=== PATIENT | female | born 1935 | race Caucasian/White ===

== ENCOUNTER 2018-12-21 21:19 | Outpatient (REF) | payer MEDICARE, MEDICAID, SELFPAY ==
[2018-12-21 21:36] LABS: TSH (W/Ref FT4) 2.26 uIU/mL (0.36-3.74)
[2018-12-21 22:17] LABS: Hemoglobin A1C 6.3 % (4.5-6.2)
== END 2018-12-21 21:39 ==
LOC: NCHCN 21:19
PROVIDERS: PCP Family Medicine; Visit Provider Family Medicine
DX: I10 Essential (primary) hypertension (principal); E03.9 Hypothyroidism, unspecified; E11.9 Type 2 diabetes mellitus without complications
CPT/HCPCS: 83036; 84443

== ENCOUNTER 2019-06-21 12:22 | Outpatient (REF) | payer MEDICARE, MEDICAID, SELFPAY ==
[2019-06-21 21:16] LABS: COMMENT (LAB VIEW ONLY) 51.15 mg/dL; Microalb ug/mg Crea 5.9 ug/mg Cr
== END 2019-06-21 12:42 ==
LOC: NCHCN 12:22
PROVIDERS: PCP Family Medicine; Visit Provider Family Medicine
DX: E11.9 Type 2 diabetes mellitus without complications (principal)
CPT/HCPCS: 82043; 82570

== ENCOUNTER 2020-01-08 09:19 | Outpatient (REF) | payer MEDICARE, MEDICAID, SELFPAY ==
[2020-01-08 19:50] LABS: Calculated LDL 144 mg/dL (<100); Cholesterol 227 mg/dL (<200); HDL Cholesterol 45 mg/dL (40-60); TSH 2.26 uIU/mL (0.36-3.74); Triglyceride 191 mg/dL (<150)
== END 2020-01-08 09:39 ==
LOC: NCHCN 09:19
PROVIDERS: PCP Family Medicine; Visit Provider Family Medicine
DX: E03.9 Hypothyroidism, unspecified (principal); E78.5 Hyperlipidemia, unspecified
CPT/HCPCS: 80061; 84443

== ENCOUNTER 2020-04-22 11:42 | Outpatient (REF) | payer MEDICARE, MEDICAID, SELFPAY ==
[2020-04-22 22:32] LABS: ALT 39 U/L (14-59); AST 25 U/L (15-37); Alkaline Phosphatase 75 U/L (46-116); Bilirubin, Total 1.8 mg/dL (0.2-1.0); Calculated LDL 73 mg/dL (<100); Cholesterol 151 mg/dL (<200); HDL Cholesterol 57 mg/dL (40-60); Triglyceride 107 mg/dL (<150)
[2020-04-22 23:20] LABS: Bilirubin, Direct 0.33 mg/dL (0.00-0.20)
== END 2020-04-22 12:02 ==
LOC: NCHCN 11:42
PROVIDERS: Nurse Practitioner Family; PCP Family Medicine; Visit Provider Family Medicine
DX: E78.5 Hyperlipidemia, unspecified (principal); E11.9 Type 2 diabetes mellitus without complications
CPT/HCPCS: 80061; 80076

== ENCOUNTER 2020-08-26 08:44 | Outpatient (REF) | payer MEDICARE, MEDICAID, SELFPAY ==
[2020-08-26 14:18] LABS: Anion Gap 10.2 mmol/L (3-11); BUN 15 mg/dL (7-18); CO2 27.8 mmol/L (21.0-32.0); CREATININE 0.9 mg/dL (0.55-1.02); Calcium 8.8 mg/dL (8.5-10.1); Calculated LDL 68 mg/dL (<100); Chloride 98 mmol/L (98-107); Cholesterol 144 mg/dL (<200); Glucose 135 mg/dL (74-106); HDL Cholesterol 57 mg/dL (40-60); Potassium 4.2 mmol/L (3.5-5.1); Sodium 136 mmol/L (136-145); Triglyceride 98 mg/dL (<150)
[2020-08-26 15:48] LABS: COMMENT (LAB VIEW ONLY) 41.25 mg/dL; Microalb ug/mg Crea 17.7 ug/mg Cr
== END 2020-08-26 08:45 | disposition home or self-care (01) ==
LOC: NCHCN 08:44
PROVIDERS: PCP Family Medicine; Visit Provider Registered Nurse
DX: I10 Essential (primary) hypertension (principal); E11.9 Type 2 diabetes mellitus without complications
CPT/HCPCS: 80048; 80061; 82043; 82570; 83036

== ENCOUNTER 2020-11-25 15:02 | Outpatient (REF) | payer MEDICARE, MEDICAID, SELFPAY ==
[2020-11-25 15:11] LABS: Anion Gap 9.7 mmol/L (3-11); BUN 12 mg/dL (7-18); CO2 30.3 mmol/L (21.0-32.0); CREATININE 0.9 mg/dL (0.55-1.02); Calcium 9.2 mg/dL (8.5-10.1); Chloride 100 mmol/L (98-107); Glucose 169 mg/dL (74-106); Sodium 140 mmol/L (136-145)
[2020-11-25 15:15] LABS: Hemoglobin A1C 6.7 % (<5.7)
== END 2020-11-25 15:03 | disposition home or self-care (01) ==
LOC: NCHCN 15:02
PROVIDERS: PCP Family Medicine; Visit Provider Registered Nurse
DX: E11.9 Type 2 diabetes mellitus without complications (principal); I50.33 Acute on chronic diastolic (congestive) heart failure
CPT/HCPCS: 80048; 83036

== ENCOUNTER 2021-02-23 12:12 | Outpatient (REF) | payer MEDICARE, MEDICAID, SELFPAY ==
[2021-02-23 16:36] LABS: Anion Gap 7.7 mmol/L (3-11); BUN 17 mg/dL (7-18); CO2 31.3 mmol/L (21.0-32.0); Calcium 8.8 mg/dL (8.5-10.1); Chloride 103 mmol/L (98-107); Estimated GFR 52.95 (mL/min/1.73m2); Glucose 129 mg/dL (74-106); Potassium 3.7 mmol/L (3.5-5.1); Sodium 142 mmol/L (136-145); TSH 1.87 uIU/mL (0.36-3.74)
== END 2021-02-23 12:13 | disposition home or self-care (01) ==
LOC: NCHCN 12:12
PROVIDERS: PCP Family Medicine; Visit Provider Family Medicine
DX: E03.9 Hypothyroidism, unspecified (principal); E11.9 Type 2 diabetes mellitus without complications; I48.0 Paroxysmal atrial fibrillation; I50.32 Chronic diastolic (congestive) heart failure; I65.29 Occlusion and stenosis of unspecified carotid artery
CPT/HCPCS: 80048; 84443

== ENCOUNTER 2021-08-27 09:48 | Outpatient (REF) | payer MEDICARE, MEDICAID, SELFPAY ==
[2021-08-27 16:07] LABS: COMMENT (LAB VIEW ONLY) 150.99 mg/dL; Microalb ug/mg Crea 18.8 ug/mg Cr
== END 2021-08-27 09:49 | disposition home or self-care (01) ==
LOC: NCHCN 09:48
PROVIDERS: PCP Family Medicine; Visit Provider Family Medicine
DX: E11.9 Type 2 diabetes mellitus without complications (principal)
CPT/HCPCS: 82043; 82570

== ENCOUNTER 2021-11-16 14:57 | Outpatient (REF) | payer MEDICARE, MEDICAID, SELFPAY | END 2021-11-16 14:58 | disposition home or self-care (01) | LOC: NCHCN 14:57 | PROVIDERS: PCP Family Medicine; Visit Provider Family Medicine ==

== ENCOUNTER 2021-11-17 10:30 | Outpatient (REF) | payer MEDICARE, MEDICAID, SELFPAY ==
[2021-11-17 15:29] LABS: Anion Gap 11.3 mmol/L (3-11); BUN 26 mg/dL (7-18); CO2 23.7 mmol/L (21.0-32.0); CREATININE 1.5 mg/dL (0.55-1.02); Calcium 8.7 mg/dL (8.5-10.1); Chloride 102 mmol/L (98-107); Estimated GFR 33.08 (mL/min/1.73m2); Glucose 199 mg/dL (74-106); Potassium 4.1 mmol/L (3.5-5.1); Sodium 137 mmol/L (136-145)
== END 2021-11-17 10:31 | disposition home or self-care (01) ==
LOC: NCHCN 10:30
PROVIDERS: PCP Family Medicine; Visit Provider Registered Nurse
DX: I50.813 Acute on chronic right heart failure (principal); I48.91 Unspecified atrial fibrillation
CPT/HCPCS: 80048

== ENCOUNTER 2021-11-19 13:45 | Outpatient (REF) | payer MEDICARE, MEDICAID, SELFPAY ==
[2021-11-19 16:28] LABS: Anion Gap 9.9 mmol/L (3-11); BUN 15 mg/dL (7-18); CO2 25.1 mmol/L (21.0-32.0); Calcium 8.7 mg/dL (8.5-10.1); Chloride 99 mmol/L (98-107); Estimated GFR 52.82 (mL/min/1.73m2); Glucose 138 mg/dL (74-106); Potassium 4.1 mmol/L (3.5-5.1); Sodium 134 mmol/L (136-145)
== END 2021-11-19 13:46 | disposition home or self-care (01) ==
LOC: NCHCN 13:45
PROVIDERS: PCP Family Medicine; Visit Provider Family Medicine
DX: I50.813 Acute on chronic right heart failure (principal)
CPT/HCPCS: 80048

== ENCOUNTER 2022-03-10 16:34 | Outpatient (REF) | payer MEDICARE, MEDICAID, SELFPAY ==
[2022-03-10 17:11] LABS: ALT 24 U/L (14-59); Anion Gap 8.6 mmol/L (3-11); BUN 13 mg/dL (7-18); CO2 28.4 mmol/L (21.0-32.0); Calcium 9.2 mg/dL (8.5-10.1); Calculated LDL 67 mg/dL (<100); Chloride 99 mmol/L (98-107); Cholesterol 136 mg/dL (<200); Estimated GFR 55.55 (mL/min/1.73m2); Glucose 128 mg/dL (74-106); HDL Cholesterol 53 mg/dL (40-60); Potassium 4.4 mmol/L (3.5-5.1); Sodium 136 mmol/L (136-145); TSH 1.99 uIU/mL (0.36-3.74); Triglyceride 84 mg/dL (<150)
[2022-03-10 17:20] LABS: Hemoglobin A1C 6.5 % (<5.7)
== END 2022-03-10 16:35 | disposition home or self-care (01) ==
LOC: NCHCN 16:34
PROVIDERS: PCP Family Medicine; Visit Provider Family Medicine
DX: I50.813 Acute on chronic right heart failure (principal); E11.9 Type 2 diabetes mellitus without complications; I10 Essential (primary) hypertension; I48.91 Unspecified atrial fibrillation
CPT/HCPCS: 80048; 80061; 83036; 84443; 84460

== ENCOUNTER 2023-04-07 21:12 | Outpatient (REF) | payer MEDICARE, MEDICAID, SELFPAY ==
[2023-04-07 21:44] LABS: Anion Gap 5.8 mmol/L (3-11); BUN 11 mg/dL (7-18); CO2 31.2 mmol/L (21.0-32.0); CREATININE 0.9 mg/dL (0.55-1.02); Calcium 9.1 mg/dL (8.5-10.1); Chloride 95 mmol/L (98-107); Estimated GFR 62.65 (mL/min/1.73m2); Glucose 175 mg/dL (74-106); Potassium 4.1 mmol/L (3.5-5.1); Sodium 132 mmol/L (136-145); TSH (W/Ref FT4) 2.65 uIU/mL (0.36-3.74)
== END 2023-04-07 21:13 | disposition home or self-care (01) ==
LOC: NCHCN 21:12
PROVIDERS: PCP Family Medicine; Visit Provider Family Medicine
DX: E03.9 Hypothyroidism, unspecified (principal); E87.1 Hypo-osmolality and hyponatremia
CPT/HCPCS: 80048; 84443

== ENCOUNTER 2023-04-28 14:41 | Outpatient (REF) | payer MEDICARE, MEDICAID, SELFPAY ==
[2023-04-28 15:25] LABS: Anion Gap 8.7 mmol/L (3-11); BUN 14 mg/dL (7-18); CO2 30.3 mmol/L (21.0-32.0); CREATININE 0.9 mg/dL (0.55-1.02); Calcium 9.3 mg/dL (8.5-10.1); Chloride 97 mmol/L (98-107); Estimated GFR 62.65 (mL/min/1.73m2); Glucose 140 mg/dL (74-106); Potassium 4.1 mmol/L (3.5-5.1); Sodium 136 mmol/L (136-145)
[2023-04-28 15:46] LABS: COMMENT (LAB VIEW ONLY) 228.98 mg/dL; Microalb ug/mg Crea 5.8 ug/mg Cr
[2023-04-28 15:48] LABS: Vitamin D 25 Total 38.7 ng/mL (30-100)
== END 2023-04-28 14:42 | disposition home or self-care (01) ==
LOC: NCHCN 14:41
PROVIDERS: PCP Family Medicine; Visit Provider Family Medicine
DX: E13.42 Other specified diabetes mellitus with diabetic polyneuropathy (principal); E87.1 Hypo-osmolality and hyponatremia; M80.88XD Other osteoporosis with current pathological fracture, vertebra(e), subsequent encounter for fracture with routine healing
CPT/HCPCS: 80048; 82306; 82043; 82570

== ENCOUNTER 2023-06-21 19:24 | Outpatient (REF) | payer MEDICARE, MEDICAID, SELFPAY ==
[2023-06-21 21:17] LABS: Abs Immature Grans 0.01 10^3/uL (0.0-0.06); Absolute Basophil Count 0.04 10^3/uL (0.0-0.2); Absolute Eosinophil Count 0.07 10^3/uL (0.0-0.7); Absolute Lymphocyte Count 1.44 10^3/uL (1.2-3.4); Absolute Monocyte Count 0.54 10^3/uL (0.1-0.8); Absolute Neutrophil Count 3.14 10^3/uL (1.2-6.7); Basophils % 0.8; Eosinophils % 1.3; HCT 40.8 % (36.0-46.0); HGB 14.1 g/dL (11.2-15.7); Immature Grans % 0.2; Lymphocytes % 27.5; MCH 31.8 pg (27.0-33.0); MCHC 34.6 % (32.0-36.0); MCV 92 fL (80-95); MPV 10.1 fL (8.0-11.0); Monocytes % 10.3; Neutrophils % 59.9; Platelet Count 254 10^3/uL (130-400); RBC 4.43 10^6/uL (3.93-5.22); RDW 13.6 % (11.7-14.6); RDW-SD 46.3 fL; WBC 5.24 10^3/uL (4.4-10.8)
[2023-06-21 21:31] LABS: ALT 28 U/L (14-59); AST 26 U/L (15-37); Albumin 3.8 g/dL (3.4-5.0); Alkaline Phosphatase 118 U/L (46-116); Anion Gap 6.9 mmol/L (3-11); BUN 9 mg/dL (7-18); Bilirubin, Total 1.3 mg/dL (0.2-1.0); CO2 31.1 mmol/L (21.0-32.0); CREATININE 0.8 mg/dL (0.55-1.02); Calcium 9.2 mg/dL (8.5-10.1); Chloride 99 mmol/L (98-107); Estimated GFR 72.16 (mL/min/1.73m2); Glucose 115 mg/dL (74-106); Potassium 4.2 mmol/L (3.5-5.1); Sodium 137 mmol/L (136-145); Total Protein 7.6 g/dL (6.4-8.2)
== END 2023-06-21 19:25 | disposition home or self-care (01) ==
LOC: NCHCN 19:24
PROVIDERS: PCP Family Medicine; Visit Provider Family Medicine
DX: R10.9 Unspecified abdominal pain (principal)
CPT/HCPCS: 80053; 85025

== ENCOUNTER 2023-09-06 15:47 | Outpatient (REF) | payer MEDICARE, MEDICAID, SELFPAY ==
[2023-09-06 21:20] LABS: HCT 42.1 % (36.0-46.0); HGB 14.3 g/dL (11.2-15.7); MCH 32.3 pg (27.0-33.0); MCV 95 fL (80-95); MPV 10.7 fL (8.0-11.0); Platelet Count 204 10^3/uL (130-400); RBC 4.43 10^6/uL (3.93-5.22); RDW 12.4 % (11.7-14.6); RDW-SD 43.2 fL
[2023-09-06 21:40] LABS: ALT 33 U/L (14-59); AST 24 U/L (15-37); Albumin 3.9 g/dL (3.4-5.0); Alkaline Phosphatase 85 U/L (46-116); Anion Gap 7.8 mmol/L (3-11); BUN 14 mg/dL (7-18); Bilirubin, Total 1.6 mg/dL (0.2-1.0); CO2 30.2 mmol/L (21.0-32.0); Calcium 8.8 mg/dL (8.5-10.1); Chloride 102 mmol/L (98-107); Estimated GFR 54.87 (mL/min/1.73m2); Glucose 197 mg/dL (74-106); Sodium 140 mmol/L (136-145); Total Protein 7.3 g/dL (6.4-8.2)
== END 2023-09-06 15:48 | disposition home or self-care (01) ==
LOC: NCHCN 15:47
PROVIDERS: PCP Family Medicine; Visit Provider Family Medicine
DX: R63.4 Abnormal weight loss (principal)
CPT/HCPCS: 80053; 85027

== ENCOUNTER 2023-09-25 11:17 | Outpatient (REF) | payer MEDICARE, MEDICAID, SELFPAY ==
[2023-09-26 12:15] LABS: Helicobacter pylori Ag, Feces Negative (Negative)
== END 2023-09-25 11:18 | disposition home or self-care (01) ==
LOC: NCHCN 11:17
PROVIDERS: PCP Family Medicine; Visit Provider Family Medicine
DX: R63.4 Abnormal weight loss (principal)
CPT/HCPCS: 87338

== ENCOUNTER 2025-01-03 18:10 | Outpatient (REF) | payer MEDICARE, MEDICAID, SELFPAY ==
[2025-01-03 15:01] LABS: HCT 41.1 % (36.0-46.0); HGB 13.9 g/dL (11.2-15.7); MCH 31.2 pg (27.0-33.0); MCHC 33.8 % (32.0-36.0); MCV 92 fL (80-95); MPV 9.9 fL (8.0-11.0); Platelet Count 213 10^3/uL (130-400); RBC 4.45 10^6/uL (3.93-5.22); RDW 12.7 % (11.7-14.6); RDW-SD 43.1 fL; WBC 5.84 10^3/uL (4.4-10.8)
[2025-01-03 15:32] LABS: Anion Gap 7.2 mmol/L (3-11); BUN 17 mg/dL (7-18); CO2 30.8 mmol/L (21.0-32.0); Calcium 9.2 mg/dL (8.5-10.1); Calculated LDL 74 mg/dL (<100); Chloride 97 mmol/L (98-107); Cholesterol 150 mg/dL (<200); Estimated GFR 71.27 (mL/min/1.73m2); Glucose 114 mg/dL (74-106); HDL Cholesterol 63 mg/dL (>or=50); Potassium 4.8 mmol/L (3.5-5.1); Sodium 135 mmol/L (136-145); TSH 1.60 uIU/mL (0.36-3.74); Triglyceride 66 mg/dL (<150)
[2025-01-03 15:45] LABS: COMMENT (LAB VIEW ONLY) 171.83 mg/dL; Microalb ug/mg Crea 6.8 ug/mg Cr
== END 2025-01-03 18:11 | disposition home or self-care (01) ==
LOC: NCHCN 18:10
PROVIDERS: PCP Family Medicine; Visit Provider Family Medicine
DX: E11.9 Type 2 diabetes mellitus without complications (principal)
CPT/HCPCS: 80048; 80061; 85027; 82043; 82570; 84443

== ENCOUNTER 2025-03-18 00:55 | Outpatient (CLI) | payer MEDICARE, MEDICAID, SELFPAY ==
--- NOTE | 2025-03-18 | DI.US_ITS ---
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 TECHNIQUE: Ultrasound carotids performed using grayscale, color-flow, and spectral Doppler imaging. COMPARISON: No exams were available for comparison FINDINGS: RIGHT CAROTID ARTERY: There is some plaque evident in the distal right common carotid artery, carotid bulb, and proximal right ICA. Plaque appears partially calcified at the carotid bulb blood proximal ICA. However, there are no elevated velocities. This indicates that the amount of stenosis is less than 50 percent. However, visually the amount of stenosis appears probably greater than 50 percent. LEFT CAROTID ARTERY: There is an endovascular stent in the distal half of the left common carotid artery and carotid bulb did-proximal left ICA. The stent is patent. There do not appear to be elevated velocities in nor distal to the stent to indicate significant intrastent stenosis. VERTEBRAL ARTERIES: Antegrade flow demonstrated in both vertebral arteries. Measurements: R Bulb: 50.4cm/s PS / 10.2cm/s ED R CCA: 69.8cm/s PS / 19.3cm/s ED R ECA: 71.1cm/s PS / 6.3cm/s ED R ICA Prox: 38.4cm/s PS / 12.1cm/s ED R ICA Mid: 48.7cm/s PS / 15.9cm/s ED R ICA Distal: 45cm/s PS /14.9cm/s ED R Vert: 76cm/s PS / 21.6cm/s ED R SVR: 0.7 R DVR: 0.5 L Bulb: 74.7cm/s PS / 18.1cm/s ED L CCA: 66.6cm/s PS / 16.3cm/s ED L ECA: 92.9cm/s PS / 7.1cm/s ED L ICA Prox: 61.1cm/s PS / 17.4cm/s ED L ICA Mid: 63.3cm/s PS / 17.4cm/s ED L ICA Distal: 63.3cm/s PS / 18.5cm/s ED L Vert: 36.6cm/s PS / 14cm/s ED L SVR: 1.1 L DVR: 1.1 IMPRESSION: Patent left carotid stent with no evidence of obvious intra stent stenosis. There is a significant amount of both calcified and noncalcified plaque at the level of the carotid bulb-proximal ICA on the opposite-right side. Although there are no elevated velocities on the right side (indicating that the amount of stenosis is less than 50 percent), visually the amount of stenosis appears to be somewhat greater than 50 percent. Therefore recommend follow-up CT angiography. Criteria for Carotid Stenosis: Normal: ICA PSV <125 cm/s no plaque or intimal thickening is visible. <50% stenosis: ICA PSV <125 cm/s and plaque or intimal thickening is visible. 50-69% stenosis: ICA PSV is 125-250 cm/s and plaque is visible. >70% stenosis to near occlusion: ICA PSV >250 cm/s with visible plaque and luminal narrowing. DATA REPOSITORY:
== END 2025-03-18 01:15 ==
PROVIDERS: PCP Family Medicine; Visit Provider Surgery Vascular Surgery
DX: I65.29 Occlusion and stenosis of unspecified carotid artery (principal); Z95.828 Presence of other vascular implants and grafts
CPT/HCPCS: 93880